=== PATIENT | female | born 1975 | race Caucasian/White ===

== ENCOUNTER → 2020-01-03 | Outpatient (CLI) | payer OTHER ==
[2016-03-26 09:12] VITALS: BP 103/70
[~2020-01-03] MED LIST: [UNRECOGNIZED DRUG - CODE] TP
--- NOTE | 2020-01-03 13:42 | RAD ---
DOPPLER CAROTID BILAT History: Reason: LT CCA WEAK PULSE, DIZZINESS / Spl. Instructions: / History: Multiple grayscale, color, and duplex spectral analysis waveform sonographic images were acquired of the carotid, subclavian, and vertebral arteries. Comparison: None Findings: RIGHT SIDE: Peak systolic flow velocity of the distal CCA is 106 cm/sec. Peak systolic flow velocity of the ICA is 102 cm/sec. The ICA/CCA ratio is 1. Peak end diastolic flow velocity of the ICA is 43 cm/sec. The peak systolic velocity of the ECA is 101 cm/sec. No significant plaque formation is identified. LEFT SIDE: Peak systolic flow velocity of the distal CCA is 97 cm/sec. Peak systolic flow velocity of the ICA is 84 cm/sec. The ICA/CCA ratio is 0.9. Peak end diastolic flow velocity of the ICA is 33 cm/sec. Peak systolic flow velocity of the ECA is 100 cm/sec. No significant plaque formation is identified. Vertebral arteries: Bilateral vertebral arteries demonstrate antegrade flow. Impression: There is no evidence of a hemodynamically significant stenosis of the internal carotid arteries. PQRS Compliance Statement - Stenosis calculations for carotid ultrasound studies are derived from validated velocity criteria which are known to correlate with the NASCET methodology. Electronically signed by: Fitz Leggett MD (01/03/2020 1:39 PM) [facility]
== END | disposition home or self-care (01) ==
LOC: US 12:23
PROVIDERS: ATTEND Nurse Practitioner Adult Health
DX: R09.89 Other specified symptoms and signs involving the circulatory and respiratory systems (principal)
CPT/HCPCS: 93880

== ENCOUNTER 2020-03-16 18:55 | Emergency (ER) | payer OTHER ==
[~2020-03-16] VITALS: Ht 170.2 cm; Wt 66.3 kg
[2020-03-16 19:00] VITALS: BP 139/89
--- NOTE | 2020-03-16 19:25 | PHYS DOC ---
Past History Past Medical History: Hyperthyroid Past Surgical History: No Surgical History Alcohol Use: Occasionally Drug Use: None General Adult EDM: Chief Complaint: LACERATION/AVULSION HPI: HPI: 44-year-old female presents with left thumb laceration. The patient was cleaning a wine glass when the stem broke and lacerated her left, distal, volar thumb. It is about 2 cm in length. The patient has not been able to get it to stop bleeding. She assumes it needs sutures. She has had sutures in other fingers multiple times. She denies any other injuries or complaints. Her tetanus is up-to-date. Review of Systems: Review of Systems: Constitutional: Denies fever or chills Eyes: Denies change in visual acuity HENT: Denies nasal congestion or sore throat Respiratory: Denies cough or shortness of breath Cardiovascular: Denies chest pain or edema GI: Denies abdominal pain, nausea, vomiting, bloody stools or diarrhea : Denies dysuria Musculoskeletal: Denies back pain or joint pain Integument: Laceration left thumb Neurologic: Denies headache, focal weakness or sensory changes Endocrine: Denies polyuria or polydipsia Lymphatic: Denies swollen glands Psychiatric: Denies depression or anxiety Heart Score: Risk Factors: Risk Factors: DM, Current or recent (<one month) smoker, HTN, HLP, family history of CAD, obesity. Risk Scores: Score 0 - 3: 2.5% MACE over next 6 weeks - Discharge Home Score 4 - 6: 20.3% MACE over next 6 weeks - Admit for Clinical Observation Score 7 - 10: 72.7% MACE over next 6 weeks - Early Invasive Strategies Current Medications: Current Meds: Current Medications Medications (Trade) Dose Ordered Sig/[facility] Start Time Stop Time Status Last Admin Dose Admin Lidocaine HCl 20 ml 1X ONCE 03/16/20 19:30 03/16/20 19:31 UNV Physical Exam: PE: Constitutional: Well developed, well nourished, no acute distress, non-toxic appearance. [] HENT: Normocephalic, atraumatic, bilateral external ears normal, oropharynx moist, no oral exudates, nose normal. [] Eyes: PERRLA, EOMI, conjunctiva normal, no discharge. [] Neck: Normal range of motion, no tenderness, supple, no stridor. [] Cardiovascular:Heart rate regular rhythm, no murmur [] Lungs & Thorax: Bilateral breath sounds clear to auscultation [] Abdomen: Bowel sounds normal, soft, no tenderness, no masses, no pulsatile masses. [] Skin: 2 cm linear laceration of the left volar thumb [] Back: No tenderness, no CVA tenderness. [] Extremities: No tenderness, no cyanosis, no clubbing, ROM intact, no edema. [] Neurologic: Alert and oriented X 3, normal motor function, normal sensory function, no focal deficits noted. [] Psychologic: Affect normal, judgement normal, mood normal. [] EKG: EKG: [] Radiology/Procedures: Radiology/Procedures: [] Course & Med Decision Making: Course & Med Decision Making Pertinent Labs and Imaging studies reviewed. (See chart for details) The patient's wound was repaired with sutures. See note below for more details. Her tetanus is up-to-date, right at 5 years. The patient is stable for discharge at this time. [] Dragon Disclaimer: Dragon Disclaimer: This electronic medical record was generated, in whole or in part, using a voice recognition dictation system. Laceration Repair Lac Repair Indication: [] 2.0 cm linear laceration of the left thumb Procedure: Verbal consent was obtained from the patient for suture repair of her thumb laceration. The wound was anesthetized with 1% lidocaine without epinephrine. 2 cc were used. Once good anesthesia was achieved, the wound was thoroughly irrigated with normal saline under pressure. No foreign bodies were found. I repaired the wound with three 5-0 Ethilon sutures in interrupted fashion. There was good skin approximation. Bleeding was mostly controlled. There was some seepage. A pressure dressing was applied over the wound. Total repaired wound length: 2 cm Other Items: None The patient tolerated the procedure well Complications: None Departure Departure: Impression: Primary Impression: Laceration of left thumb Qualified Codes: S61.012A - Laceration without foreign body of left thumb without damage to nail, initial encounter Disposition: 01 HOME/RESIDENCE PRIOR TO ADM Condition: IMPROVED Referrals: FARHEEN BOWLING MD (PCP) Patient Instructions: Fingertip Laceration Justification of Admission: Justification of Admission: Justification of Admission Dx: N/A CONRAD GARCÍA DO Mar 16, 2020 19:25
[2020-03-16] MEDS ORDERED: LIDOCAINE 1% Multi-Dose 20 ML VIAL. IJ ONE (19:30)
== END 2020-03-16 20:00 | disposition home or self-care (01) ==
LOC: ER 18:55
DX: S61.012A Laceration without foreign body of left thumb without damage to nail, initial encounter (principal); E05.90 Thyrotoxicosis, unspecified without thyrotoxic crisis or storm; W25.XXXA Contact with sharp glass, initial encounter; Y93.G1 Activity, food preparation and clean up; Y92.89 Other specified places as the place of occurrence of the external cause; Y99.8 Other external cause status
CPT/HCPCS: 12001; 99282; 99283

== ENCOUNTER → 2020-05-22 | Outpatient (CLI) | payer OTHER ==
[~2020-05-22] MED LIST changes: +IOHEXOL 240 MG/ML 50ML VIAL. ONE; +IOHEXOL 300 MG/ML 75 ML VIAL. IV ONE
--- NOTE | 2020-05-22 11:49 | RAD ---
CT abdomen and pelvis with contrast History: Right lower quadrant pain Technique: After the administration of intravenous contrast, CT imaging was performed of the abdomen and pelvis. Oral contrast was given. Multiplanar images are reviewed. Exposure: One or more of the following individualized dose reduction techniques were utilized for this examination: 1. Automated exposure control 2. Adjustment of the mA and/or kV according to patient size 3. Use of iterative reconstruction technique. Comparison: None Findings: There is no significant abnormality of the visualized lung bases. There is no significant or focal abnormality of the liver, spleen, pancreas, adrenal glands. Spleen measures about 14.9 x 5.7 x 4.6 cm. Both kidneys enhance. There is segmental mild mid right hydroureter and mild right renal pelviectasis. Gallbladder is present without obvious intraluminal abnormality by CT. Bowel is not significantly dilated. No free fluid or free air is identified. Appendix is not confidently identified although no significant pericecal inflammatory type change. There is focus of hypodensity with peripheral enhancement of the right adnexa on the order of 1.4 cm in size. There is IUD present in the uterus. There is [id number] degenerative disc disease at L5-S1 and to lesser degree at L4-5. Impression: 1. Appendix is not confidently identified to confidently exclude acute appendicitis by imaging although no significant pericecal inflammatory change. There is a small focus of hypodensity of the right adnexa most commonly due to partially collapsed cyst. There is nonspecific segmental mild mid right hydroureter and mild right renal pelviectasis. 2. There is nonspecific splenomegaly. Electronically signed by: Fitz Sheridan MD (05/22/2020 11:46 AM) [facility] CENTERMeliza
== END ==
LOC: CT 09:36
PROVIDERS: ATTEND Family Medicine
DX: N13.30 Unspecified hydronephrosis (principal); M51.37 Other intervertebral disc degeneration, lumbosacral region; Z97.5 Presence of (intrauterine) contraceptive device
CPT/HCPCS: 74177; Q9967

== ENCOUNTER → 2021-12-20 | Outpatient (CLI) | payer OTHER ==
[~2021-12-20] MED LIST changes: -IOHEXOL 240 MG/ML 50ML VIAL. ONE; -IOHEXOL 300 MG/ML 75 ML VIAL. IV ONE
--- NOTE | 2021-12-21 08:39 | RAD ---
INDICATION: Reason: PELVIC/ PERIRENAL PAIN / Spl. Instructions: / History: COMPARISON: CT from April 2020. TECHNIQUE: Grayscale and color ultrasound images uterus and adnexa. Transabdominal and transvaginal images obtained. Transvaginal images were needed to better visualize structures that were limited on transabdominal imaging. FINDINGS: Uterus: 90 x 50 x 30 mm. Intrauterine device is seen. Right Ovary: 30 x 20 x 20 mm. Left Ovary: 20 x 20 x 10 mm. Vascular flow identified to bilateral ovaries. Hypoechoic masslike structure at the lower uterine segment to cervical region measuring 15 x 13 mm. 16 mm heterogenous solid mass within the uterus near fundus commonly from fibroid IMPRESSION: * Vascular flow seen to the ovaries. * Uterine mass at the fundus most commonly from fibroid. * Additional hypoechoic solid-appearing mass at the lower uterine segment to cervical region. Could be from an additional fibroid but a cervical origin mass is also within the differential given the lo cation. Further workup option would include pelvic MRI if additional clarification is needed. Electronically signed by: Sid Lim MD (12/21/2021 8:37 AM) [id number]
== END ==
LOC: US 14:54
PROVIDERS: ATTEND Clinical Nurse Specialist Family Health
DX: D25.9 Leiomyoma of uterus, unspecified (principal); R19.00 Intra-abdominal and pelvic swelling, mass and lump, unspecified site
CPT/HCPCS: 76830; 76856